=== PATIENT | female | born 1980 | race African-American/Black ===

== ENCOUNTER 2018-08-30 16:41 | Emergency (ER) | payer MEDICARE ==
[~2018-08-30] VITALS: Ht 154.9 cm; Wt 137.0 kg
[2018-08-30] MEDS ORDERED: IBUPROFEN 600MG TABLET PO ONE (19:00)
[2018-08-30] MEDS ORDERED: VISCOUS LIDOCAINE 2% 15 ML UDC MM ONE (19:00)
[2018-08-30 19:47] VITALS: BP 130/68
== END 2018-08-30 19:47 | disposition home or self-care (01) ==
LOC: ER 16:41
DX: J06.9 Acute upper respiratory infection, unspecified (principal); Z98.890 Other specified postprocedural states
CPT/HCPCS: 99283

== ENCOUNTER 2019-11-26 23:22 | Emergency (ER) | payer MEDICARE ==
[~2019-11-26] VITALS: Ht 154.9 cm; Wt 138.0 kg
[2019-11-27 01:34] LABS: CHLORIDE 108 mEq/L (98-107)
[2019-11-27 01:39] LABS: BASOPHILS % 0.2 % (0.0-2.0); EOSINOPHILS % 0.5 % (0.0-5.0); HEMOGLOBIN. 10.7 g/dL (12.0-16.0); LYMPHOCYTES % 42.2 % (20.0-50.0); MEAN CORPUSCULAR HEMOGLOBIN 20.3 pg (28.0-32.0); MEAN CORPUSCULAR VOLUME 64.2 fL (81.0-99.0); MEAN PLATELET VOLUME 9.2 fl (7.4-10.4); NEUTROPHILS % 49.1 % (40.0-76.0); PLATELET 249 x1000/uL (130-400); RED BLOOD CELL COUNT 5.29 mill/uL (4.2-5.4); RED CELL DISTRIBUTION WIDTH 16.9 % (11.6-14.6)
[2019-11-27 01:42] LABS: PLATELET ESTIMATE NORMAL
[2019-11-27 03:52] VITALS: BP 109/55
== END 2019-11-27 03:54 | disposition home or self-care (01) ==
LOC: ER 23:22
DX: M94.0 Chondrocostal junction syndrome [Tietze] (principal); Z98.890 Other specified postprocedural states
CPT/HCPCS: 36415; 71045; 80048; 81025; 84484; 85025; 93005; 99285

== ENCOUNTER 2021-08-12 04:49 | Emergency (ER) | payer MEDICARE ==
[~2021-08-12] VITALS: Ht 154.9 cm; Wt 137.0 kg
[2021-08-12] MEDS ORDERED: ACETAMINOPHEN 325MG TABLET PO SCH (05:56)
[2021-08-12 07:13] LABS: CHLORIDE 109 mEq/L (98-107)
[2021-08-12 07:14] LABS: BASOPHILS % 0.5 % (0.0-2.0); EOSINOPHILS % 2.3 % (0.0-5.0); HEMATOCRIT. 34.9 % (36.0-48.0); HEMOGLOBIN. 10.8 g/dL (12.0-16.0); LYMPHOCYTES % 40.3 % (20.0-50.0); MEAN CORPUSCULAR VOLUME 64.6 fL (81.0-99.0); MEAN PLATELET VOLUME 9.1 fl (7.4-10.4); MONOCYTES % 9.6 % (2.0-8.0); NEUTROPHILS % 47.3 % (40.0-76.0); PLATELET 217 x1000/uL (130-400); RED CELL DISTRIBUTION WIDTH 17.2 % (11.6-14.6)
[2021-08-12 08:01] LABS: PLATELET ESTIMATE NORMAL
[2021-08-12 08:12] LABS: CLARITY URINE CLEAR (CLEAR); COLOR URINE YELLOW (YELLOW); KETONES URINE NEGATIVE (NEGATIVE); LEUKOCYTE ESTERASE URINE NEGATIVE (NEGATIVE); NITRITE URINE NEGATIVE (NEGATIVE); OCCULT BLOOD URINE NEGATIVE (NEGATIVE); PH URINE 6.5 (4.5-8.0); PROTEIN URINE NEGATIVE (NEGATIVE); UROBILINOGEN URINE 0.2 E.U./dL (0.2-1.0)
[2021-08-12 08:27] LABS: UCG SCREEN NEGATIVE
[2021-08-12 09:09] VITALS: BP 160/100
== END 2021-08-12 09:13 | disposition home or self-care (01) ==
LOC: ER 04:49
DX: J06.9 Acute upper respiratory infection, unspecified (principal); Z20.822 Contact with and (suspected) exposure to COVID-19; Z98.890 Other specified postprocedural states
CPT/HCPCS: 36415; 71045; 80053; 81003; 81025; 84484; 85025; 99284; C9803; U0003; U0005

== ENCOUNTER 2021-08-23 12:45 | Emergency (ER) | payer MEDICARE ==
[~2021-08-23] VITALS: Ht 154.9 cm; Wt 137.0 kg
[2021-08-23 13:44] VITALS: BP 135/75
== END 2021-08-23 13:41 | disposition home or self-care (01) ==
LOC: ER 12:45
DX: Z20.822 Contact with and (suspected) exposure to COVID-19 (principal)
CPT/HCPCS: 87426; 99283

== ENCOUNTER 2021-12-09 04:22 | Emergency (ER) | payer MEDICARE ==
[~2021-12-09] VITALS: Ht 154.9 cm; Wt 134.0 kg
[2021-12-09 08:46] LABS: BASOPHILS % 0.4 % (0.0-2.0); HEMATOCRIT. 33.8 % (36.0-48.0); HEMOGLOBIN. 10.6 g/dL (12.0-16.0); LYMPHOCYTES % 43.3 % (20.0-50.0); MEAN CORPUSCULAR HEMOGLOBIN 19.7 pg (28.0-32.0); MEAN CORPUSCULAR VOLUME 62.9 fL (81.0-99.0); MEAN PLATELET VOLUME 9.7 fl (7.4-10.4); MONOCYTES % 11.8 % (2.0-8.0); NEUTROPHILS % 43.5 % (40.0-76.0); PLATELET 264 x1000/uL (130-400); RED BLOOD CELL COUNT 5.38 mill/uL (4.2-5.4); RED CELL DISTRIBUTION WIDTH 16.1 % (11.6-14.6)
[2021-12-09 08:54] LABS: CHLORIDE 110 mEq/L (98-107)
[2021-12-09 08:57] LABS: HCG SCREEN NEGATIVE
[2021-12-09 09:13] LABS: PLATELET ESTIMATE NORMAL
[2021-12-09] MEDS ORDERED: KETOROLAC 60MG/2ML VIAL IM ONE (10:30)
[2021-12-09] MEDS ORDERED: METH-773 MT (11:23)
[2021-12-09 11:44] VITALS: BP 125/75
== END 2021-12-09 11:48 | disposition home or self-care (01) ==
LOC: ER 04:22
DX: M54.12 Radiculopathy, cervical region (principal); R20.2 Paresthesia of skin; D64.9 Anemia, unspecified; Z98.890 Other specified postprocedural states
CPT/HCPCS: 36415; 72125; 80053; 84703; 85025; 96372; 99284; J1885

== ENCOUNTER 2023-09-01 02:29 | Emergency (ER) | payer MEDICARE ==
[~2023-09-01] VITALS: Ht 154.9 cm; Wt 134.5 kg
[~2023-09-01 02:29] MED LIST: METH-773 MT
[2023-09-01 02:42] VITALS: O2SAT 100
[2023-09-01] MEDS ORDERED: KETOROLAC 60MG/2ML VIAL IM STA (04:25)
[2023-09-01] MEDS ORDERED: ONDANSETRON 4MG ODT PO STA (04:25)
[2023-09-01] MEDS ORDERED: HYDROCODONE/ACETAMINOPHEN 5/325MG TABLET PO STA (04:25)
[2023-09-01 05:14] LABS: BASOPHILS % 0.4 % (0.0-2.0); EOSINOPHILS % 0.4 % (0.0-5.0); HEMOGLOBIN. 10.6 g/dL (12.0-16.0); LYMPHOCYTES % 40.6 % (20.0-50.0); MEAN CORPUSCULAR HEMOGLOBIN 19.9 pg (28.0-32.0); MEAN CORPUSCULAR HGB CONC 30.4 g/dL (31.0-37.0); MEAN CORPUSCULAR VOLUME 65.5 fL (81.0-99.0); MEAN PLATELET VOLUME 9.1 fl (7.4-10.4); MONOCYTES % 6.8 % (2.0-8.0); NEUTROPHILS % 51.8 % (40.0-76.0); PLATELET 234 x1000/uL (130-400); RED BLOOD CELL COUNT 5.35 mill/uL (4.2-5.4); RED CELL DISTRIBUTION WIDTH 16.3 % (11.6-14.6); WHITE BLOOD COUNT 6.7 x1000/uL (4.5-11.0)
[2023-09-01 05:34] LABS: CLARITY URINE CLOUDY (CLEAR); COLOR URINE YELLOW (YELLOW); GLUCOSE URINE NEGATIVE (NEGATIVE); KETONES URINE NEGATIVE (NEGATIVE); LEUKOCYTE ESTERASE URINE NEGATIVE (NEGATIVE); NITRITE URINE NEGATIVE (NEGATIVE); OCCULT BLOOD URINE NEGATIVE (NEGATIVE); PH URINE 7.5 (4.5-8.0); PROTEIN URINE NEGATIVE (NEGATIVE); SPECIFIC GRAVITY URINE 1.023 (1.005-1.030)
[2023-09-01 05:43] LABS: ADD RBC MORPHOLOGY YES; DIFFERENTIAL COMMENT 1
[2023-09-01 05:53] LABS: ALANINE AMINOTRANSFERASE 15 IU/L (10-49); ALBUMIN 4.4 g/dL (3.2-4.8); ASPARTATE AMINOTRANSFERASE 18 IU/L (<34); BILIRUBIN TOTAL 0.4 mg/dL (0.1-1.0); CALCIUM 9.1 mg/dL (8.7-10.4); CARBON DIOXIDE 25 mEq/L (21-32); CHLORIDE 108 mEq/L (98-107); CREATININE 0.8 mg/dL (0.6-1.0); GLUCOSE 110 mg/dL (70-105); POTASSIUM 3.2 mEq/L (3.5-5.1); SODIUM 139 mEq/L (136-145); UREA NITROGEN BLOOD 10 mg/dL (9-23)
[2023-09-01 06:25] LABS: HCG SCREEN NEGATIVE
[2023-09-01 06:29] LABS: PROTHROMBIN TIME 10.3 sec (9.6-11.0)
[2023-09-01 06:38] LABS: SQUAMOUS EPITHELIAL CELL URINE 3+ /lpf (RARE/1+)
[2023-09-01 06:40] LABS: RBC URINE 0-2 /hpf (0-2); WBC URINE 0-2 /hpf (0-2)
[2023-09-01 06:41] LABS: BACTERIA URINE 2+
[2023-09-01] MEDS ORDERED: TOPUD PO (08:03)
[2023-09-01] MEDS ORDERED: ONDA4TAB50 PO (08:03)
[2023-09-01 08:14] VITALS: BP 144/98; PULSE 87; RESP 14; TEMP 98.3
[2023-09-01 12:51] LABS: ANISOCYTOSIS 2+; MICROCYTOSIS 1+; PLATELET ESTIMATE NORMAL
== END 2023-09-01 08:27 | disposition home or self-care (01) ==
LOC: ER 02:29
DX: K80.50 Calculus of bile duct without cholangitis or cholecystitis without obstruction (principal)
CPT/HCPCS: 99285; 74176; 80053; 81003; 84703; 83690; 85025; 85610; 36415; 96372; Q0162; J1885